=== PATIENT | male | born 1990 | race African-American/Black ===

== ENCOUNTER 2024-02-20 06:56 | Emergency (ER) | payer OTHER ==
[2024-02-20] MEDS ORDERED: fentaNYL 50 mcg/mL 1 mL Vial ONE (07:18)
[2024-02-20] MEDS ORDERED: Lorazepam 2 MG/ML VIAL ONE (07:19)
[2024-02-20] MEDS ORDERED: Fentanyl CADD 100 ML IV SCH (07:30)
[2024-02-20 07:48] LABS: Actual Bicarbonate (HCO3a) 21.8 mEq/L (22-28); Analyzer IN Cardio ER; Base Excess (BEa) -2.3 mEq/L (-2.0 to +3.0); CO2 Tension 35.5 mmHg (35.0-45.0); Carboxyhemoglobin (COHb) 0.3 gm% (0.0-3.0); Hematocrit-ABG 42 % (42.0-52.0); Hemoglobin (Hb) 14.4 g/dL (14.0-18.0); O2 Tension (PaO2), arterial 394.7 mmHg (80.0-100.0); Potassium - ABG Lab 3.11 mmol/L (3.70-5.30); pH, Arterial 7.406 (7.35-7.45)
[2024-02-20] MEDS ORDERED: Lidocaine 1% PF 5 ML VIAL ONE (07:49)
[2024-02-20 07:52] LABS: Puncture Site Right Radial artery
[2024-02-20 07:53] LABS: ALV-art Gradient -82.575 mmHg (0-20)
[2024-02-20 08:11] LABS: #Basophils Less than 0.03 10x3/uL (0.0-0.2); %Basophils 0.2 % (0.0-1.0); %Lymphocytes 17.2 % (21.0-51.0); %Neutrophils 73.2 % (42.0-75.0); Hematocrit 43.1 % (42.0-52.0); Hemoglobin 14.2 g/dL (14.0-18.0); Mean Corpuscular HGB CONC 32.9 g/dL (32.0-36.0); Mean Corpuscular Hemoglobin 28.5 pg (27.0-31.0); Mean Corpuscular Volume 86.4 fL (78.0-98.0); Mean Platelet Volume 9.4 fL (7.4-10.4); Platelet Count 159 10x3/uL (130-400); RBC Distribution Width 11.9 % (11.5-14.5); Red Blood Cell (RBC) Count 4.99 mill/uL (4.70-6.10)
[2024-02-20 08:16] LABS: Bacteria/HPF None Seen HPF (None Seen); Bilirubin Negative (Negative); Blood, Urine Trace (Negative); CAUTI Indications for Culture Urological Procedure; Clarity Clear (Clear); Glucose, Urine (Dipstick) Normal (Negative); Ketone, Urine Trace mg/dL (Negative); Leukocyte Negative Leu/uL (Negative); Nitrite Negative (Negative); Protein, Urine (Dipstick) Negative (Neg-Trace); RBC/HPF 0-3 HPF (0-3); Squamous Epithelial 0-3 HPF (0-3); Urobilinogen Normal mg/dL (Less than 2); WBC/HPF 0-3 HPF (0-3); pH, Urine 5.5 (5.0-9.0)
[2024-02-20 08:29] LABS: INR-International Normal Ratio 1.2; PTT 23.3 sec (22.9-36.1); Prothrombin Time 14.7 sec (12.0-14.7)
[2024-02-20 08:30] LABS: Urine Culture Reflex No No
[2024-02-20 08:32] LABS: Urine Culture Reflex Yes Yes
[2024-02-20 08:42] LABS: ALT (SGPT) 28 U/L (8-55); AST (SGOT) 34 U/L (5-34); Albumin 3.7 g/dL (3.5-5.0); Alkaline Phosphatase 63 U/L (40-110); Anion Gap 16 mmol/L (10-20); BUN (Urea Nitrogen) 10 mg/dL (8.9-20.6); Bilirubin, Total 1.4 mg/dL (0.2-1.2); Calc. Creatinine Clearance 0 mL/min (70-130); Calcium 9.1 mg/dL (7.8-10.44); Carbon Dioxide 17 mmol/L (22-29); Chloride 110 mmol/L (98-107); Estimated GFR 80; Globulin 2.9 g/dL (2.4-3.5); Glucose 81 mg/dL (70-105); Potassium 4.1 mmol/L (3.5-5.1); Protein, Total 6.6 g/dL (6.0-8.3); Sodium 139 mmol/L (136-145)
[2024-02-20 09:10] LABS: Amphetamine Not Detected (NotDetected); Barbiturates Screen Not Detected (NotDetected); Benzodiazepine Screen Detected (NotDetected); Cocaine Metabolite Screen Not Detected (NotDetected); Methadone Not Detected (NotDetected); Methamphetamine Not Detected (NotDetected); Opiate Screen Not Detected (NotDetected); Oxycodone Screen Not Detected (NotDetected); Phencyclidine (PCP) Not Detected (NotDetected); THC/Cannabinoid Screen Not Detected (NotDetected); Tricyclic Screen Not Detected (NotDetected)
[2024-02-20] MEDS ORDERED: Bacitracin 1 PK ONE (09:37)
== END 2024-02-20 11:29 | disposition still patient (30) ==
LOC: EDBD 06:56 → ERS 06:56 → EEVIPCON 06:56 → ERS 11:29
DX: S06.0X9A Concussion with loss of consciousness of unspecified duration, initial encounter (principal); S01.01XA Laceration without foreign body of scalp, initial encounter; Z55.6 Problems related to health literacy; W17.89XA Other fall from one level to another, initial encounter
CPT/HCPCS: 36600; 51702; 70450; 71045; 72125; 80053; 80306; 81001; 82805; 85025; 85610; 85730; 87086; 93005; 94002; 96365; 96374; 96375; G0390; J2060; J3010